=== PATIENT | male | born 1935 | race Caucasian/White ===

== ENCOUNTER 2017-10-11 05:11 | Inpatient (IN) ==
[2017-10-11] MEDS ORDERED: FUROSEMIDE 100 MG/10 ML VIAL IV STA (05:33)
[2017-10-11] MEDS ORDERED: ALBUTEROL/IPRATROPIUM 3 ML NEB RESP TX STA (05:33)
[2017-10-11 05:59] LABS: ABG Base Excess 5.3 MMOL/L (-2.5-2.5); ABG HCO3 29.2 MMOL/L (20-26); ABG Oxygen Saturation 97.2 % (95-100); ABG PCO2 48.2 MM HG (35-48); ABG PH 7.416 (7.35-7.45); ABG PO2 92.4 MM HG (80-95); ABG TCO2 26.8 MMOL/L (23-27)
[2017-10-11 05:59] LABS: Basophils # 0.1 10*3/uL (0.0-0.2); Basophils % 1.4 % (0.0-0.8); Eosinophils # 0.5 10*3/uL (0.0-0.87); Eosinophils % 11.2 % (0.00-10.9); Hematocrit 43.2 VOL% (42.0-52.0); Hemoglobin 14.4 GM/DL (14.0-18.0); Immature Granulocytes % 0.5 %; Immature Granulocytes Absolute 0.02 #; Lymphocytes # 0.8 10*3/uL (1.4-4.0); Lymphocytes % 18.8 % (21.2-54.2); Mean Corpuscular HGB Conc 33.3 GM/DL (32-36); Mean Corpuscular Hemoglobin 33 PG (27-34); Mean Corpuscular Volume 98.9 FL (87-102); Mean Platelet Volume 10.1 FL (9.6-12.0); Monocytes # 0.5 10*3/uL (0.11-0.8); Monocytes % 11.6 % (1.7-12.7); Neutrophils # 2.4 10*3/uL (1.4-7.4); Neutrophils % 56.5 % (38.7-73.9); Platelet Count 140 T/CUMM (130-400); Red Blood Count 4.37 MC/CUMM (3.8-5.5); Red Cell Distribution Width 11.9 % (9.3-17.3); White Blood Count 4.3 T/CUMM (4-12)
[2017-10-11 06:09] LABS: INR 1.1; Partial Thromboplastin Time 30.7 SECS (0-40)
[2017-10-11 06:20] LABS: Alanine Aminotransferase 20 U/L (16-61); Alkaline Phosphatase 151 U/L (45-117); Aspartate Amino Transferase 13 U/L (0-37); Blood Urea Nitrogen 10 MG/DL (7-18); Calcium 8.6 MG/DL (8.5-10.1); Glucose 92 MG/DL (74-106); Potassium 3.8 MMOL/L (3.5-5.1); Sodium 143 MMOL/L (136-145); Total Protein 7.4 G/DL (6.4-8.3); Troponin I Only < 0.015 NG/ML (0.00-0.045)
[2017-10-11 06:28] LABS: Eosinophils 9 % (0-10); Hypochromasia 1+; Lymphocytes 26 % (20-55); Segmented Neutrophils 60 % (50-85); Total Cells Counted 100
[2017-10-11 06:29] LABS: Platelet Estimate Adequate
[2017-10-11 08:43] LABS: Apearance,Urine CLEAR (Clear); Bilirubin,Urine Negative (Negative); Blood, Urine Negative (Negative); Glucose,Urine (UA) Negative (Negative); Ketones,Urine Negative (Negative); Mucus,Urine Occasional /LPF (Occasional); Nitrite,Urine Negative (Negative); Protein,Urine Negative; RBC,Urine 1 /HPF (0-4); Urine Color Straw (Yellow); Urine Specific Gravity 1.005 (1.001-1.035); Urine Urobilinogen < 2.0 EU/DL (0.2-1.0)
[2017-10-11] MEDS ORDERED: LACTULOSE 20 GM/30 ML UDCUP PO PRN (09:38)
[2017-10-11] MEDS ORDERED: ONDANSETRON 4 MG/2 ML VIAL IV PRN (09:38)
[2017-10-11] MEDS ORDERED: DOCUSATE SODIUM 100 MG CAPSULE PO PRN (09:38)
[2017-10-11] MEDS ORDERED: MAGNESIUM SULF RIDER 4 GM in PREMIX 1 EACH IV PRN (09:38)
[2017-10-11] MEDS ORDERED: guaiFENesin/DM ER 600-30 MG TABLET PO PRN (09:38)
[2017-10-11] MEDS ORDERED: MAGNESIUM SULF RIDER 2 GM in PREMIX 1 EACH IV PRN (09:38)
[2017-10-11] MEDS ORDERED: ALBUTEROL/IPRATROPIUM 3 ML NEB RESP TX PRN (09:58)
[2017-10-11 11:57] LABS: Troponin I Only < 0.015 NG/ML (0.00-0.045)
[2017-10-11] MEDS: ALBUTEROL/IPRATROPIUM 3 ML NEB RESP TX SCH ×3 (13:45→20:12)
[2017-10-11 14:23] LABS: Troponin I Only < 0.015 NG/ML (0.00-0.045)
[2017-10-11] MEDS: FUROSEMIDE 40 MG/4 ML VIAL IV SCH (15:34)
[2017-10-11] MEDS: PANTOPRAZOLE 40 MG TABLET PO SCH (15:34)
[2017-10-11 18:05] LABS: Troponin I Only < 0.015 NG/ML (0.00-0.045)
[2017-10-11] MEDS: MONTELUKAST 10 MG TABLET PO SCH (20:16)
[2017-10-11] MEDS: carBAMazepine 200 MG TABLET PO SCH (20:16)
[2017-10-11] MEDS: APIXABAN 5 MG TABLET PO SCH (20:16)
[2017-10-12] MEDS: cycloSPORINE OPH EMUL 1 VIAL BOTH EYES SCH ×3 (04:24→20:53)
[2017-10-12] MEDS: ALBUTEROL/IPRATROPIUM 3 ML NEB RESP TX SCH ×4 (06:20→19:46)
[2017-10-12 06:58] LABS: Basophils # 0.1 10*3/uL (0.0-0.2); Basophils % 0.9 % (0.0-0.8); Eosinophils # 0.6 10*3/uL (0.0-0.87); Eosinophils % 10.2 % (0.00-10.9); Hematocrit 42.4 VOL% (42.0-52.0); Hemoglobin 14.6 GM/DL (14.0-18.0); Immature Granulocytes % 0.4 %; Immature Granulocytes Absolute 0.02 #; Lymphocytes % 17.8 % (21.2-54.2); Mean Corpuscular HGB Conc 34.4 GM/DL (32-36); Mean Corpuscular Hemoglobin 33 PG (27-34); Mean Corpuscular Volume 96.8 FL (87-102); Mean Platelet Volume 10.2 FL (9.6-12.0); Monocytes # 0.6 10*3/uL (0.11-0.8); Monocytes % 11.5 % (1.7-12.7); Neutrophils # 3.2 10*3/uL (1.4-7.4); Neutrophils % 59.2 % (38.7-73.9); Platelet Count 145 T/CUMM (130-400); Red Blood Count 4.38 MC/CUMM (3.8-5.5); Red Cell Distribution Width 12.1 % (9.3-17.3); White Blood Count 5.4 T/CUMM (4-12)
[2017-10-12 07:38] LABS: Calcium 8.4 MG/DL (8.5-10.1); Osmolality,Calculated 281.3 MOS/KG (273-304); Potassium 3.5 MMOL/L (3.5-5.1); Thyroid Stimulating Hormone 0.972 uIU/ml (0.358-3.74); VLDL CHOLESTEROL 16.4 MG/DL
[2017-10-12] MEDS: FUROSEMIDE 40 MG/4 ML VIAL IV SCH ×2 (08:09→17:09)
[2017-10-12] MEDS: PANTOPRAZOLE 40 MG TABLET PO SCH (08:10)
[2017-10-12] MEDS: POTASSIUM CHLORIDE 20 MEQ TABLET PO SCH (08:10)
[2017-10-12] MEDS: ACETAMINOPHEN 325 MG TABLET PO PRN (08:10)
[2017-10-12] MEDS: DILTIAZEM CD 120 MG CAPSULE PO SCH (08:10)
[2017-10-12] MEDS: APIXABAN 5 MG TABLET PO SCH ×2 (08:10→20:53)
[2017-10-12] MEDS ORDERED: ASPIRIN CHEW 81 MG TABLET PO SCH (09:00)
[2017-10-12] MEDS: MONTELUKAST 10 MG TABLET PO SCH (20:53)
[2017-10-12] MEDS: carBAMazepine 200 MG TABLET PO SCH (20:53)
[2017-10-13 05:11] LABS: Basophils # 0.1 10*3/uL (0.0-0.2); Basophils % 1.1 % (0.0-0.8); Eosinophils # 0.5 10*3/uL (0.0-0.87); Eosinophils % 9.9 % (0.00-10.9); Hematocrit 38.7 VOL% (42.0-52.0); Hemoglobin 13.2 GM/DL (14.0-18.0); Immature Granulocytes % 0.2 %; Immature Granulocytes Absolute 0.01 #; Lymphocytes # 1.2 10*3/uL (1.4-4.0); Mean Corpuscular HGB Conc 34.1 GM/DL (32-36); Mean Corpuscular Hemoglobin 35 PG (27-34); Mean Corpuscular Volume 101.3 FL (87-102); Mean Platelet Volume 10.8 FL (9.6-12.0); Monocytes # 0.7 10*3/uL (0.11-0.8); Monocytes % 13.2 % (1.7-12.7); Neutrophils # 2.8 10*3/uL (1.4-7.4); Neutrophils % 53.6 % (38.7-73.9); Platelet Count 142 T/CUMM (130-400); Red Blood Count 3.82 MC/CUMM (3.8-5.5); White Blood Count 5.2 T/CUMM (4-12)
[2017-10-13 05:38] LABS: Potassium 3.2 MMOL/L (3.5-5.1)
[2017-10-13] MEDS: ALBUTEROL/IPRATROPIUM 3 ML NEB RESP TX SCH ×4 (07:50→20:32)
[2017-10-13] MEDS: APIXABAN 5 MG TABLET PO SCH ×2 (08:56→20:19)
[2017-10-13] MEDS: DILTIAZEM CD 120 MG CAPSULE PO SCH (08:56)
[2017-10-13] MEDS: FOLIC ACID 1 MG TABLET PO SCH (08:56)
[2017-10-13] MEDS: PANTOPRAZOLE 40 MG TABLET PO SCH (08:56)
[2017-10-13] MEDS: FUROSEMIDE 40 MG/4 ML VIAL IV SCH (08:57)
[2017-10-13] MEDS: POTASSIUM CHLORIDE 20 MEQ TABLET PO SCH (08:57)
[2017-10-13] MEDS: cycloSPORINE OPH EMUL 1 VIAL BOTH EYES SCH ×2 (09:00→20:20)
[2017-10-13] MEDS: ACETAMINOPHEN 325 MG TABLET PO PRN ×2 (09:03→21:11)
[2017-10-13] MEDS: FINASTERIDE 5 MG TABLET PO SCH (09:04)
[2017-10-13] MEDS ORDERED: ALBUTEROL/IPRATROPIUM 3 ML NEB RESP TX PRN (10:38)
[2017-10-13 11:52] LABS: % Iron Saturation 31.3 % (18-50)
[2017-10-13 12:03] LABS: ABG Base Excess 8.3 MMOL/L (-2.5-2.5); ABG Oxygen Saturation 94.2 % (95-100); ABG PCO2 47.4 MM HG (35-48); ABG PH 7.459 (7.35-7.45); ABG PO2 69.4 MM HG (80-95); ABG TCO2 28.7 MMOL/L (23-27); Allen Test Negative; Pt O2 Delivery Device Room Air
[2017-10-13 12:07] LABS: Folate > 24.0 NG/ML (5.4-24.0); Vitamin B12 350 PG/ML (211-911)
[2017-10-13] MEDS: MONTELUKAST 10 MG TABLET PO SCH ×2 (13:32→20:19)
[2017-10-13] MEDS: LEVOFLOXACIN 250 MG TABLET PO SCH (13:32)
[2017-10-13] MEDS: methylPREDNISolone SOD SUC 40 MG/1 ML VIAL IV SCH ×2 (13:33→22:34)
[2017-10-13] MEDS: FUROSEMIDE 40 MG TABLET PO SCH (16:57)
[2017-10-13] MEDS: carBAMazepine 200 MG TABLET PO SCH (20:19)
[2017-10-14 05:41] LABS: Basophils % 0.2 % (0.0-0.8); Eosinophils % 0.2 % (0.00-10.9); Hematocrit 40.7 VOL% (42.0-52.0); Hemoglobin 14.9 GM/DL (14.0-18.0); Immature Granulocytes % 0.4 %; Immature Granulocytes Absolute 0.02 #; Lymphocytes # 0.6 10*3/uL (1.4-4.0); Lymphocytes % 10.8 % (21.2-54.2); Mean Corpuscular HGB Conc 36.6 GM/DL (32-36); Mean Corpuscular Hemoglobin 35 PG (27-34); Mean Corpuscular Volume 96.7 FL (87-102); Mean Platelet Volume 10.8 FL (9.6-12.0); Monocytes # 0.2 10*3/uL (0.11-0.8); Monocytes % 3.3 % (1.7-12.7); Neutrophils # 4.3 10*3/uL (1.4-7.4); Neutrophils % 85.1 % (38.7-73.9); Platelet Count 152 T/CUMM (130-400); Red Blood Count 4.21 MC/CUMM (3.8-5.5); Red Cell Distribution Width 11.9 % (9.3-17.3); White Blood Count 5.1 T/CUMM (4-12)
[2017-10-14 06:22] LABS: Calcium 8.7 MG/DL (8.5-10.1); Osmolality,Calculated 282.4 MOS/KG (273-304); Potassium 3.7 MMOL/L (3.5-5.1)
[2017-10-14] MEDS: ALBUTEROL/IPRATROPIUM 3 ML NEB RESP TX SCH ×2 (07:08→10:56)
[2017-10-14] MEDS: DILTIAZEM CD 120 MG CAPSULE PO SCH (09:22)
[2017-10-14] MEDS: FINASTERIDE 5 MG TABLET PO SCH (09:22)
[2017-10-14] MEDS: FOLIC ACID 1 MG TABLET PO SCH (09:22)
[2017-10-14] MEDS: APIXABAN 5 MG TABLET PO SCH (09:22)
[2017-10-14] MEDS: MONTELUKAST 10 MG TABLET PO SCH (09:22)
[2017-10-14] MEDS: PANTOPRAZOLE 40 MG TABLET PO SCH (09:23)
[2017-10-14] MEDS: FUROSEMIDE 40 MG TABLET PO SCH (09:23)
[2017-10-14] MEDS: cycloSPORINE OPH EMUL 1 VIAL BOTH EYES SCH (09:23)
[2017-10-14] MEDS: POTASSIUM CHLORIDE 20 MEQ TABLET PO SCH (09:23)
[2017-10-14] MEDS: LEVOFLOXACIN 250 MG TABLET PO SCH (12:25)
[2017-10-14] MEDS: methylPREDNISolone SOD SUC 40 MG/1 ML VIAL IV SCH (12:25)
[2017-10-14 12:29] VITALS: BP 132/72
== END 2017-10-14 13:55 | disposition home or self-care (01) | DRG 191 ==
LOC: EDUNIT# → EDBD → N.ED 05:11 → N.EDINP 07:40 → N.4E 10:10
PROVIDERS: ADMIT Internal Medicine; ATTEND Internal Medicine